=== PATIENT | female | born 1990 | race American Indian/Alaskan Native ===

== ENCOUNTER 2017-09-13 14:40 | Emergency (ER) | payer OTHER ==
[2017-09-13 15:15] VITALS: BP 111/70
--- NOTE | 2017-09-13 17:54 | Emergency Department Report ---
Chief Complaint: Urogenital-Female Stated Complaint: STD TESTING Time Seen by Provider: 09/13/17 17:28 - HPI History of Present Illness: 27-year-old -[place] female comes in for having a recent sexual activity with someone told her he had chlamydia. Patient denies any signs or symptoms no vaginal discharge no pelvic pain no dysuria no fever no chills no nausea or vomiting. Patient reports no past medical history currently takes no medications has no surgical history. - Exam Vital Signs: Vital Signs 09/13/17 15:12 Temperature 98.6 F Pulse Rate 65 Respiratory 16 Rate Blood Pressure 111/70 O2 Sat by Pulse 100 Oximetry Physical Exam: Patient alert and oriented 3. No acute distress. Signs are stable. MSE screening note: Focused history and physical exam performed. Due to findings the following was ordered: Discussed the patient this is a nonemergency examination. She can follow up with the health department or primary care provider for STD screening. Patient verbalized understanding. ED Disposition for MSE Clinical Impression: Screening examination for STD (sexually transmitted disease) Disposition: TO HOME OR SELFCARE Is pt being admited?: No Does the pt Need Aspirin: No Condition: Stable Additional Instructions: Please follow up with the health department I have listed their information below. Referrals: [facility] [Outside] - 3-5 Days [facility] [Outside] - 3-5 Days [facility] [Outside] - 3-5 Days [facility] [Outside] - 3-5 Days [facility] [Outside] - 3-5 Days Forms: Work/School Release Form(ED)
== END 2017-09-13 18:11 | disposition home or self-care (01) ==
LOC: ED 14:40
DX: Z20.2 Contact with and (suspected) exposure to infections with a predominantly sexual mode of transmission (principal)
CPT/HCPCS: 99281